=== PATIENT | female | born 1955 | race Caucasian/White ===

== ENCOUNTER 2021-01-25 11:26 | Emergency (ER) | payer OTHER ==
[2021-01-25] MEDS ORDERED: Magnesium 2 GM/50 ML BAG (IN WATER) ONE (11:43)
[2021-01-25] MEDS ORDERED: Ipratropium Bromide 2.5 ml Neb ONE (11:49)
[2021-01-25] MEDS ORDERED: Albuterol Sulfate 2.5 mg/3 ml Neb ONE (11:49)
[2021-01-25 12:10] LABS: Hemoglobin 13.5 g/dL (12.0-15.5); MDiff Complete? YES; Mean Corpuscular HGB CONC 30.8 g/dL (32.0-36.0); Mean Corpuscular Hemoglobin 27.9 pg (27.0-33.0); Mean Corpuscular Volume 90.5 fl (81.6-98.3); Mean Platelet Volume 10.5 fl (7.4-10.4); Platelet Count 214 10x3/uL (150-450); RBC Distribution Width 13.5 % (11.5-14.5); Red Blood Cell (RBC) Count 4.84 10x6/uL (3.90-5.03); White Blood Cell (WBC) Count 7.3 10x3/uL (3.5-10.5)
[2021-01-25 12:24] LABS: ALT (SGPT) 20 U/L (8-55); AST (SGOT) 32 U/L (5-34); Albumin 4.3 g/dL (3.4-4.8); Alkaline Phosphatase 93 U/L (40-110); Anion Gap 19 mmol/L (10-20); BUN (Urea Nitrogen) 16 mg/dL (9.8-20.1); Bilirubin, Total 0.5 mg/dL (0.2-1.2); Calc. Creatinine Clearance 0 mL/min (70-130); Calcium 9.6 mg/dL (7.8-10.44); Carbon Dioxide 18 mmol/L (23-31); Chloride 107 mmol/L (98-107); Glucose 148 mg/dL (80-115); Potassium 4.4 mmol/L (3.5-5.1); Protein, Total 7.3 g/dL (5.8-8.1); Sodium 140 mmol/L (136-145)
[2021-01-25] MEDS ORDERED: Fentanyl 100 MCG/2 ML VIAL ONE ×2 (12:54→13:23)
[2021-01-25 13:02] LABS: Eosinophils 1 % (0-10); Lymphocytes 73 % (21-51); Monocytes 5 % (0-10); Neutrophil 20 % (42-75); Reactive Lymphocytes 1 % (0-10)
[2021-01-25 13:04] LABS: Platelet Morphology Comment Appears Adequate
[2021-01-25 13:06] LABS: RBC Morphology Normal
[2021-01-25 13:08] LABS: Reflex for Review?? YES
[2021-01-25] MEDS ORDERED: EPINEPHrine 1 MG/10 ML Abboject SYRINGE ONE (13:26)
[2021-01-25 13:39] LABS: SARS-CoV-2 NAA Rapid Test Not Detected (NotDetected)
[2021-01-25] MEDS ORDERED: fentaNYL Citrate-0.9 % NaCl/PF 100 ML IVPB SCH ×2 (13:45)
[2021-01-25 14:08] LABS: ALV-art Gradient 265.375 mmHg (0-20); Actual Bicarbonate (HCO3a) 19.2 mEq/L (22-28); Base Excess (BEa) -8.2 mEq/L (-2.0 to +3.0); CO2 Tension 46.1 mmHg (35.0-45.0); Calcium, Ionized (arterial) 1.17 mmol/L (1.12-1.30); Carboxyhemoglobin (COHb) 0.1 gm% (0.0-3.0); Hemoglobin (Hb) 14.4 g/dL (12.0-16.0); Potassium - ABG Lab 3.5 mmol/L (3.70-5.30); Puncture Site RRA; pH, Arterial 7.24 (7.35-7.45)
[2021-01-25] MEDS ORDERED: Lorazepam 2 MG/ML VIAL ONE (14:38)
[2021-01-25] MEDS ORDERED: levETIRAcetam in NS 200 ML ONE (14:42)
[2021-01-25] MEDS ORDERED: SODIUM CHLORIDE IV SCH (15:00)
[2021-01-25] MEDS ORDERED: manNITOL 20% 500 ML ONE (15:01)
[2021-01-25 15:15] LABS: Actual Bicarbonate (HCO3a) 18.2 mEq/L (22-28); CO2 Tension 48.7 mmHg (35.0-45.0); Calcium, Ionized (arterial) 1.17 mmol/L (1.12-1.30); Carboxyhemoglobin (COHb) 0.2 gm% (0.0-3.0); Hemoglobin (Hb) 13.7 g/dL (12.0-16.0); O2 Tension (PaO2), arterial 102.1 mmHg (> 80.0); Potassium - ABG Lab 3.5 mmol/L (3.70-5.30); Puncture Site RRA; pH, Arterial 7.19 (7.35-7.45)
[2021-01-25 15:17] LABS: ALV-art Gradient 264.825 mmHg (0-20)
== END 2021-01-25 16:20 | disposition short-term general hospital (02) ==
LOC: CSHERS 11:26
DX: I60.12 Nontraumatic subarachnoid hemorrhage from left middle cerebral artery (principal); I46.9 Cardiac arrest, cause unspecified; I45.2 Bifascicular block; R00.0 Tachycardia, unspecified; K21.9 Gastro-esophageal reflux disease without esophagitis; E78.5 Hyperlipidemia, unspecified; M19.90 Unspecified osteoarthritis, unspecified site; M85.80 Other specified disorders of bone density and structure, unspecified site; Z20.822 Contact with and (suspected) exposure to COVID-19; Z79.899 Other long term (current) drug therapy
CPT/HCPCS: 36415; 36556; 36600; 51702; 70450; 70486; 70496; 71045; 72125; 80053; 82805; 83605; 84484; 85025; 85060; 85379; 92950; 92953; 93005; 94002; 94760; 96365; 96366; 96368; 96375; 96376; 99292; J0171; J1953; J2060; J3010; J3475; J7611; J7799; U0002